=== PATIENT | male | born 1970 ===

== ENCOUNTER 2020-03-11 17:47 | Emergency (ER) | payer BC ==
[2020-03-11] MEDS ORDERED: Tetan/Diph/Pertus SYR(Tdap)* 0.5 ML SYR(BOOSTRIX) use SYR contains LATEX IM ONE (17:49)
--- NOTE | 2020-03-11 17:49 | UC ---
Laceration HPI - HPI Summary HPI Summary: 50 yo male presents with LEFT index finger laceration. He tells me that about 1 hour [employer] he sliced his left index finger on a metal door handle. Went home and bandaged the area and came to . Unsure date of last tetanus. - History Of Current Complaint Stated Complaint: L FINGER LACERATION Time Seen by Provider: 03/11/20 17:49 Hx Obtained From: Patient Laceration Location: Finger Mechanism Of Injury: Sharp Trauma Onset/Duration: Sudden Onset - Allergies/Home Medications Allergies/Adverse Reactions: Allergies Allergy/AdvReac Type Severity Reaction Status Date / Time MS Penicillins Allergy Hives Verified 03/11/20 17:53 Home Medications: Home Medications NK [No Home Medications Reported] 03/11/20 [History Confirmed 03/11/20] PMH/Surg Hx/FS Hx/Imm Hx - Additional Past Medical History Additional PMH: None - Surgical History Surgical History: Yes Surgery Procedure, Year, and Place: tumor removal - Family History Known Family History: Positive: None - Social History Lives: With Family Alcohol Use: None Substance Use Type: None Smoking Status (MU): Never Smoked Tobacco Review of Systems All Other Systems Reviewed And Are Negative: No Constitutional: Positive: Negative Skin: Positive: Other - Finger laceration Respiratory: Positive: Negative Cardiovascular: Positive: Negative Neurological/Mental Status: Positive: Negative Psychological: Positive: Negative Physical Exam - Summary Physical Exam Summary: GENERAL: NAD. WDWN. No pain distress. SKIN: LEFT INDEX FINGER: Overlying the dorsal PIP there is a 1.5cm linear laceration partial thickness with good approximation at rest, but does open when flexing joint. Scant bleeding. Clean appearing. No appreciable tendon or bony involvement. CHEST: No accessory muscle use. Breathing comfortably and in no distress. CV: Pulses intact. Cap refill <2seconds MSK: FROM Left index finger MCP, PIP, and DIP with intact strength during flexion and extension NEURO: Alert. PSYCH: Age appropriate behavior. Triage Information Reviewed: Yes Vital Signs: Vital Signs: Temp Pulse Resp BP Pulse Ox 96.9 F 84 16 147/95 96 03/11/20 18:04 03/11/20 18:04 03/11/20 18:04 03/11/20 18:04 03/11/20 18:04 Vital Signs Reviewed: Yes Laceration Repair - Laceration Repair 1 Description: Linear Laceration Size After Repair: Length (cm) - 1.5 Anesthesia Used: 2.0% Lido Irrigation With Pressure Irrigation Device: Yes Closure Material: Sutures - #5 Closure Method: Single Layer Suture Of: Skin Suture Type: Prolene - 5-0 Laceration Course/Dx - Course/Dx Course Of Treatment: The procedure was explained to the pt and all questions were answered. A time out was performed, witnessed, and signed. The area was irrigated with 50mL sterile saline. 1mL of 2% lidocaine without epi was administered and good anesthetization was achieved. The wound was explored. In the usual sterile fashion, FIVE 5-0 prolene interrupted sutures were placed. Homeostasis achieved. The wound was bandaged with tubegauze. Pt tolerated procedure well. tdap updated today - Diagnosis Provider Diagnosis: Finger laceration Discharge ED - Sign-Out/Discharge Documenting (check all that apply): Patient Departure All imaging exams completed and their final reports reviewed: No Studies - Discharge Plan Condition: Stable Disposition: HOME Patient Education Materials: Finger Laceration (ED) Referrals: Beni Moore MD [Primary Care Provider] - Additional Instructions: 1) Please keep the area bandage, clean, dry, and intact for the next 24- 48hours. Then change the bandage daily until sutures are removed. 2) If you develop a fever, colored or thick discharge, increased pain or swelling - please call your PCP or return for a wound check. 3) Please return in 10-14 days to have your FIVE sutures removed. 4) I recommend using the finger splint for 3-5 days to limit the flexing of the finger until it has healed more - Billing Disposition and Condition Condition: STABLE Disposition: Home
[2020-03-11] MEDS ORDERED: Lidocaine 2% PF * 5 ML VIAL INJ ONE (18:01)
[2020-03-11 18:10] VITALS: BP 147/95
== END 2020-03-11 18:40 | disposition home or self-care (01) ==
LOC: UCEAST 17:47
DX: S61.211A Laceration without foreign body of left index finger without damage to nail, initial encounter (principal); W26.8XXA Contact with other sharp object(s), not elsewhere classified, initial encounter; Y92.9 Unspecified place or not applicable; Z23 Encounter for immunization; Z88.0 Allergy status to penicillin
CPT/HCPCS: 12001; 90471; 90715; 99202; G0463

== ENCOUNTER 2020-03-21 09:36 | Emergency (ER) | payer BC ==
[2020-03-21 10:07] VITALS: BP 126/85
--- NOTE | 2020-03-21 10:11 | UC ---
Laceration HPI - HPI Summary HPI Summary: 50 yo male presents for suture removal. He had 5 sutures placed to his left index finger 10 days ago by myself s/p laceration. Has been healing well without redness, drainage, pain, or fevers. - History Of Current Complaint Chief Complaint: UCLaceration Stated Complaint: stitches out Time Seen by Provider: 03/21/20 10:10 Hx Obtained From: Patient Laceration Location: Finger Mechanism Of Injury: Sharp Trauma Pain Intensity: 0 - Allergies/Home Medications Allergies/Adverse Reactions: Allergies Allergy/AdvReac Type Severity Reaction Status Date / Time Penicillins Allergy Hives Verified 03/21/20 10:03 Home Medications: Home Medications NK [No Home Medications Reported] 03/11/20 [History Confirmed 03/21/20] PMH/Surg Hx/FS Hx/Imm Hx - Additional Past Medical History Additional PMH: None - Surgical History Surgical History: Yes Surgery Procedure, Year, and Place: tumor removal - Family History Known Family History: Positive: None - Social History Lives: With Family Alcohol Use: None Substance Use Type: None Smoking Status (MU): Never Smoked Tobacco - Immunization History Most Recent Tetanus Shot: 2019 Review of Systems All Other Systems Reviewed And Are Negative: No Constitutional: Positive: Negative Skin: Positive: Other - Left index finger sutures in place Respiratory: Positive: Negative Cardiovascular: Positive: Negative Neurological/Mental Status: Positive: Negative Psychological: Positive: Negative Physical Exam - Summary Physical Exam Summary: GENERAL: NAD. WDWN. No pain distress. SKIN: LEFT INDEX FINGER: [address] Mild wound dehiscence at ulnar aspect of wound. NTTP. No erythema or drainage. CHEST: No accessory muscle use. Breathing comfortably and in no distress. CV: Pulses intact. Cap refill <2seconds MSK: FROM left index finger PIP and DIP. NEURO: Alert. PSYCH: Age appropriate behavior. Triage Information Reviewed: Yes Vital Signs: Initial Vital Signs Temp 96.9 F 03/21/20 10:00 Pulse 83 03/21/20 10:00 Resp 18 03/21/20 10:00 BP 126/85 03/21/20 10:00 Pulse Ox 97 03/21/20 10:00 Vital Signs Reviewed: Yes Laceration Course/Dx - Course/Dx Course Of Treatment: 5 sutures removed without difficulty. Steri-strips applied and advised to remain in place for 3-5 more days. - Diagnosis Provider Diagnosis: Visit for suture removal Discharge ED - Sign-Out/Discharge Documenting (check all that apply): Patient Departure All imaging exams completed and their final reports reviewed: No Studies - Discharge Plan Condition: Stable Disposition: HOME Patient Education Materials: Ayanna (ED) Referrals: Beni Moore MD [Primary Care Provider] - Additional Instructions: Keep the steri-strips in place for another 3-5 days and keep applying a band- aid daily - Billing Disposition and Condition Condition: STABLE Disposition: Home
== END 2020-03-21 10:25 | disposition home or self-care (01) ==
LOC: UCEAST 09:36
DX: S61.211D Laceration without foreign body of left index finger without damage to nail, subsequent encounter (principal); W26.9XXD Contact with unspecified sharp object(s), subsequent encounter; Z88.0 Allergy status to penicillin